=== PATIENT | male | born 1980 | race Caucasian/White ===

== ENCOUNTER 2018-02-21 20:57 | Emergency (ER) | payer BC, OTHER ==
[2018-02-21] MEDS ORDERED: PROVENTIL 2.5 MG/3 ML NEB IH ONE ×2 (21:09→21:15)
[2018-02-21] MEDS ORDERED: Sodium Chloride 0.9% 1000 ML 1,000 ML IV STA (21:09)
--- NOTE | 2018-02-21 21:09 | ERPHSYRPT ---
- History of Present Illness Time Seen by Provider: 02/21/18 21:05 Source: patient, family Exam Limitations: no limitations Physician History: The patient is a 37-year-old male with his complaining of a gradual onset of intermittent cough and shortness of breath for one month. He smokes cigarettes. His cough was better after a couple of weeks and got worse again this is happened 2 or 3 times. For the last 2 or 3 days has had a cough with sputum production. Since yesterday he has a pain in his chest especially with coughing in the upper central part of his chest. He says it feels like there is something that needs to be coughed out of his chest. His past medical history is unremarkable. He takes no prescription medicines. Timing/Duration: gradual onset (1 month ago), worse Cough Quality/Degree: moderate, productive cough Possible Cause: no prior episodes Modifying Factors: Improves With: coughing Associated Symptoms: chest pain/soreness, cough, shortness of breath Allergies/Adverse Reactions: No Known Drug Allergies Allergy (Verified 02/21/18 21:09) - Review of Systems Constitutional: No Fever, No Chills Eyes: No Symptoms Ears, Nose, & Throat: No Symptoms Respiratory: Cough, Dyspnea Cardiac: Chest Pain Abdominal/Gastrointestinal: No Abdominal Pain, No Nausea, No Vomiting, No Diarrhea Genitourinary Symptoms: No Dysuria Musculoskeletal: No Back Pain, No Neck Pain Skin: No Rash Neurological: No Dizziness, No Focal Weakness, No Sensory Changes Psychological: No Symptoms Endocrine: No Symptoms Hematologic/Lymphatic: No Symptoms Immunological/Allergic: No Symptoms All Other Systems: Reviewed and Negative - Past Medical History Neurological History: No Pertinent History Cardiac History: No Pertinent History Respiratory History: No Pertinent History Endocrine Medical History: No Pertinent History Musculoskeletal History: No Pertinent History - Nursing Vital Signs Nursing Vital Signs: Initial Vital Signs Temperature 98.5 F 02/21/18 21:00 Pulse Rate 140 H 02/21/18 21:00 Respiratory Rate 30 H 02/21/18 21:00 Blood Pressure 136/82 02/21/18 21:00 O2 Sat by Pulse Oximetry 100 02/21/18 21:00 Pain Scale Pain Intensity 10 - Physical Exam General Appearance: moderate distress, anxiety Eye Exam: PERRL/EOMI, eyes nml inspection Ears, Nose, Throat Exam: TMs normal, pharynx normal, moist mucous membranes, pharyngeal erythema, other (red and swollen uvula) Neck Exam: normal inspection, non-tender, supple, full range of motion Respiratory Exam: rhonchi (mild), No chest tenderness Cardiovascular Exam: regular rate/rhythm, normal heart sounds Gastrointestinal/Abdomen Exam: soft, No tenderness Rectal Exam: not done Back Exam: normal inspection, No CVA tenderness, No vertebral tenderness Extremity Exam: normal inspection, normal range of motion Neurologic Exam: alert, oriented x 3, cooperative, normal mood/affect, sensation nml, No motor deficits Skin Exam: normal color, warm, dry, No rash Lymphatic Exam: No adenopathy SpO2 Interpretation: normal Oxygen Delivery: Room Air - Course EKG Interpreted by Me: RATE, Sinus Tach, NORMAL AXIS, NORMAL INTERVALS, NORMAL QRS, NORMAL ST-T - Radiology Exams Chest X-ray Interpretation: Interpreted by me, Negative, No Pneumonia, No Infiltrates , Other (hyperventilated 2V chest.) Ordered Tests: Active Orders 24 hr Category Date Time Status Investigator Operator STAT Care 02/21/18 21:10 Active EKG-ER Only STAT Care 02/21/18 21:09 Active IV Insertion STAT Care 02/21/18 21:09 Active Oxygen-ED Only NASAL CANNULA 2 lpm Care 02/21/18 21:09 Active Pulse Oximetry (ED) STAT Care 02/21/18 21:09 Active CHEST 2 VIEWS (PA AND LAT) Stat Exams 02/21/18 21:09 Taken CBC W DIFF Stat Lab 02/21/18 21:35 Completed CMP Stat Lab 02/21/18 21:35 Completed D-DIMER QUANTITATION Stat Lab 02/21/18 21:35 Completed Lactic Acid Stat Lab 02/21/18 21:15 Completed NT PRO BNP Stat Lab 02/21/18 21:35 Completed TROPONIN Q3H Lab 02/21/18 21:35 Completed TROPONIN Q3H Lab 02/22/18 00:15 Ordered TROPONIN Q3H Lab 02/22/18 03:15 Ordered TROPONIN Q3H Lab 02/22/18 06:15 Ordered TROPONIN Q3H Lab 02/22/18 09:15 Ordered Respiratory Nebulizer STAT RT 02/21/18 21:10 Completed Respiratory Therapy Assessment DAILY RT 02/21/18 21:45 Active Medication Summary Discontinued Medications Generic Name Dose Route Start Last Admin Trade Name Freq PRN Reason Stop Dose Admin Albuterol Sulfate 2.5 mg 02/21/18 21:09 02/21/18 21:18 Proventil 2.5 Mg/3 Ml Neb IH 02/21/18 21:10 2.5 mg STAT ONE Administration Albuterol Sulfate Confirm 02/21/18 21:15 Proventil 2.5 Mg/3 Ml Neb Administered 02/21/18 21:16 Dose 2.5 mg IH .STK-MED ONE Sodium Chloride 1,000 mls @ 999 mls/hr 02/21/18 21:09 02/21/18 21:32 Sodium Chloride 0.9% 1000 Ml IV 02/21/18 22:09 999 mls/hr .Q1H1M STA Administration Sodium Chloride Confirm 02/21/18 21:30 Sodium Chloride 0.9% 1000 Ml Administered 02/21/18 21:31 Dose 1,000 mls @ ud .ROUTE .STK-MED ONE Lab/Rad Data: Laboratory Result Diagrams 02/21/18 21:35 02/21/18 21:35 Laboratory Results 02/21/18 02/21/18 02/21/18 Range/Units 21:35 21:35 21:35 WBC (4.0-10.5) K/mm3 RBC (4.1-5.6) M/mm3 Hgb (12.5-18.0) gm/dl Hct (42-50) % MCV (78-100) fl MCH (26-32) pg MCHC (32-36) g/dl RDW (11.5-14.0) % Plt Count (150-450) K/mm3 MPV (6-9.5) fl Gran % (36.0-66.0) % Eos # (Auto) (0-0.5) Absolute Lymphs (auto) (1.0-4.6) Absolute Monos (auto) (0.0-1.3) Lymphocytes % (24.0-44.0) % Monocytes % (0.0-12.0) % Eosinophils % (0.00-5.0) % Basophils % (0.0-0.4) % Absolute Granulocytes (1.4-6.9) Basophils # (0-0.4) D-Dimer < 215 L (215-500) ng/mL Sodium (137-145) mmol/L Potassium (3.5-5.1) mmol/L Chloride (98-107) mmol/L Carbon Dioxide (22-30) mmol/L Anion Gap (5-15) MEQ/L BUN (9-20) mg/dL Creatinine (0.66-1.25) mg/dL Estimated GFR ML/MIN Glucose (74-106) mg/dL Lactic Acid (0.4-2.0) Calcium (8.4-10.2) mg/dL Total Bilirubin (0.2-1.3) mg/dL AST (17-59) U/L ALT (0-50) U/L Alkaline Phosphatase (38-126) U/L Troponin I < 0.012 (0.000-0.034) ng/mL NT-Pro-B Natriuret Pep (0-450) pg/mL Serum Total Protein (6.3-8.2) g/dL Albumin (3.5-5.0) g/dL Influenza Type A Ag NEGATIVE (NEGATIVE) Influenza Type B Ag NEGATIVE (NEGATIVE) RSV (PCR) NEGATIVE (Negative) 02/21/18 02/21/18 02/21/18 Range/Units 21:35 21:35 21:15 WBC 7.9 (4.0-10.5) K/mm3 RBC 4.77 (4.1-5.6) M/mm3 Hgb 15.8 (12.5-18.0) gm/dl Hct 43.1 (42-50) % MCV 90.4 (78-100) fl MCH 33.1 H (26-32) pg MCHC 36.7 H (32-36) g/dl RDW 13.8 (11.5-14.0) % Plt Count 261 (150-450) K/mm3 MPV 9.1 (6-9.5) fl Gran % 61.8 (36.0-66.0) % Eos # (Auto) 0.04 (0-0.5) Absolute Lymphs (auto) 2.29 (1.0-4.6) Absolute Monos (auto) 0.69 (0.0-1.3) Lymphocytes % 28.9 (24.0-44.0) % Monocytes % 8.7 (0.0-12.0) % Eosinophils % 0.5 (0.00-5.0) % Basophils % 0.1 (0.0-0.4) % Absolute Granulocytes 4.90 (1.4-6.9) Basophils # 0.01 (0-0.4) D-Dimer (215-500) ng/mL Sodium 142 (137-145) mmol/L Potassium 3.5 (3.5-5.1) mmol/L Chloride 102 (98-107) mmol/L Carbon Dioxide 26 (22-30) mmol/L Anion Gap 17.4 H (5-15) MEQ/L BUN 15 (9-20) mg/dL Creatinine 0.82 (0.66-1.25) mg/dL Estimated GFR > 60.0 ML/MIN Glucose 99 (74-106) mg/dL Lactic Acid 1.7 (0.4-2.0) Calcium 9.7 (8.4-10.2) mg/dL Total Bilirubin 1.20 (0.2-1.3) mg/dL AST 24 (17-59) U/L ALT 22 (0-50) U/L Alkaline Phosphatase 71 (38-126) U/L Troponin I (0.000-0.034) ng/mL NT-Pro-B Natriuret Pep 35.2 (0-450) pg/mL Serum Total Protein 8.1 (6.3-8.2) g/dL Albumin 5.0 (3.5-5.0) g/dL Influenza Type A Ag (NEGATIVE) Influenza Type B Ag (NEGATIVE) RSV (PCR) (Negative) - Progress Progress: improved Air Movement: good Blood Culture(s) Obtained: No Antibiotics given: Yes Counseled pt/family regarding: lab results, diagnosis, need for follow-up, rad results, smoking cessation - Departure Time of Disposition: 22:20 Departure Disposition: Home Clinical Impression: Bronchitis Condition: Stable Critical Care Time: No Referrals: DOCTOR,NO FAMILY [NON-STAFF PHY W/O PRIVILEGES] - Additional Instructions: You have bronchitis. You were given an albuterol nebulizer breathing treatment in the ER. You were also given Rocephin 1 g by IV in the ER. Take azithromycin 500 mg on day 1 then 250 mg each day for days 2 through 5. Follow- up with your primary care doctor next week. Prescriptions: Azithromycin 250 mg [Zithromax 250 MG TABLET] 250 mg PO ZPACK #6 tablet
[2018-02-21] MEDS ORDERED: Sodium Chloride 0.9% 1000 ML 1,000 ML ONE (21:30)
[2018-02-21 21:41] LABS: BASOPHIL % 0.1 % (0.0-0.4); Basophil (Absolute #) 0.01 (0-0.4); Eosinophil % 0.5 % (0.00-5.0); Eosinophil (Absolute #) 0.04 (0-0.5); Granulocytes % 61.8 % (36.0-66.0); Hematocrit 43.1 % (42-50); Hemoglobin 15.8 gm/dl (12.5-18.0); Lymphocyte (Absolute #) 2.29 (1.0-4.6); Lymphocytes % 28.9 % (24.0-44.0); Mean Cell Volume 90.4 fl (78-100); Mean Corpuscular Hemoglobin 33.1 pg (26-32); Mean Corpuscular Hgb Concent. 36.7 g/dl (32-36); Mean Platelet Volume 9.1 fl (6-9.5); Monocyte (Absolute #) 0.69 (0.0-1.3); Monocytes % 8.7 % (0.0-12.0); Platelet Count 261 K/mm3 (150-450); Red Blood Count 4.77 M/mm3 (4.1-5.6); Red Cell Distribution Width 13.8 % (11.5-14.0); White Blood Count 7.9 K/mm3 (4.0-10.5)
[2018-02-21 21:49] VITALS: O2SAT 98
[2018-02-21 22:04] LABS: ALKALINE PHOSPHATASE 71 U/L (38-126); ANION GAP 17.4 MEQ/L (5-15); BLOOD UREA NITROGEN 15 mg/dL (9-20); CHLORIDE 102 mmol/L (98-107); Calcium 9.7 mg/dL (8.4-10.2); Carbon Dioxide 26 mmol/L (22-30); Creatinine 1 0.82 mg/dL (0.66-1.25); Glucose 99 mg/dL (74-106); NT PRO BNP 35.2 pg/mL (0-450); Potassium 3.5 mmol/L (3.5-5.1); SGOT/AST 24 U/L (17-59); SGPT/ALT 22 U/L (0-50); SODIUM 142 mmol/L (137-145); Total Protein 8.1 g/dL (6.3-8.2)
[2018-02-21 22:13] LABS: INFLUENZA A NEGATIVE (NEGATIVE); INFLUENZA B NEGATIVE (NEGATIVE); RESPIRATORY SYNCTIAL VIRUS NEGATIVE (Negative)
[2018-02-21] MEDS ORDERED: ROCEPHIN 1 Gm-D5w 50 ml Bag** 1 G/50 ML IVPB IV STA (22:20)
[2018-02-21] MEDS ORDERED: ROCEPHIN 1 Gm-D5w 50 ml Bag** 1 G/50 ML IVPB IV ONE (22:33)
[2018-02-21 23:17] VITALS: BP 116/75; PULSE 90
--- NOTE | 2018-02-22 11:07 | XRAY ---
Exam: Two-view chest from 02/21/2018. Comparison: None. Indication: 37-year-old male with cough, shortness breath, chest pain, history of cigarette smoking for 19 years. Findings: 2 Upright PA films and a lateral chest film were obtained. There is mild hyperinflation of the lungs with a prominent retrosternal airspace. Correlate clinically regarding COPD. The heart size and contour are normal. The owen and mediastinal structures appear unremarkable. EKG leads are noted. No air space infiltrates, vascular congestion, pneumothorax, or pleural fluid is seen. Minimal focal pleural tenting is seen at the lateral aspect of the right hemidiaphragm. This is nonspecific, but may be due to minimal scarring. No acute osseous process is seen. Impression: 1. Hyperinflated chest revealing no infiltrates, heart failure, pneumothorax, or other acute cardiopulmonary disease. Correlate clinically regarding an element of COPD.
== END 2018-02-21 23:17 | disposition home or self-care (01) ==
LOC: ED 20:57
DX: J40 Bronchitis, not specified as acute or chronic (principal)
CPT/HCPCS: 36000; 36415; 71046; 80053; 83605; 83880; 84484; 85025; 85379; 87631; 93005; 93041; 94640; 96360; 96365; 99284; J7609; J0696; A9270-GY

== ENCOUNTER 2022-09-04 12:57 | Emergency (ER) | payer SELFPAY ==
[2022-09-04] MEDS ORDERED: Hydromorphone 1 mg/ml Injection IV ONE (13:09)
[2022-09-04] MEDS ORDERED: Zofran 4 MG/2 ML VIAL IV ONE (13:09)
--- NOTE | 2022-09-04 13:09 | ERPHSYRPT ---
- History of Present Illness Time Seen by Provider: 09/04/22 13:08 Source: patient, family Exam Limitations: no limitations Patient Subjective Stated Complaint: Fell and cut left lower leg. Physician History: Fell outside, cut lower left leg, painful, limited movement, no other injury. Method of Injury: direct blow, fell Occurred: just prior to arrival Quality: constant Severity of Pain-Max: moderate Severity of Pain-Current: moderate Lower Extremities Pain: leg: left (contused laceration) Modifying Factors: Improves With: rest. Worsens With: movement Associated Symptoms: none Allergies/Adverse Reactions: No Known Drug Allergies Allergy (Verified 09/04/22 13:02) Home Medications: No Reportable Medications [No Reported Medications] 09/04/22 [History] Hx Tetanus, Diphtheria Vaccination/Date Given: Yes Hx Influenza Vaccination/Date Given: No Hx Pneumococcal Vaccination/Date Given: No - Review of Systems Constitutional: No Symptoms Eyes: No Symptoms Ears, Nose, & Throat: No Symptoms Respiratory: No Symptoms Cardiac: No Symptoms Abdominal/Gastrointestinal: No Symptoms Genitourinary Symptoms: No Symptoms Musculoskeletal: No Symptoms Skin: No Symptoms Neurological: No Symptoms Psychological: No Symptoms Endocrine: No Symptoms Hematologic/Lymphatic: No Symptoms All Other Systems: Reviewed and Negative - Past Medical History Pertinent Past Medical History: No Neurological History: No Pertinent History Cardiac History: No Pertinent History Respiratory History: No Pertinent History Endocrine Medical History: No Pertinent History Musculoskeletal History: No Pertinent History GI Medical History: No Pertinent History History: No Pertinent History Psycho-Social History: No Pertinent History Male Reproductive Disorders: No Pertinent History - Past Surgical History Past Surgical History: No Neuro Surgical History: No Pertinent History Cardiac: No Pertinent History Respiratory: No Pertinent History Gastrointestinal: No Pertinent History Genitourinary: No Pertinent History Musculoskeletal: No Pertinent History Male Surgical History: No Pertinent History - Social History Smoking Status: Current every day smoker How long have you smoked: 3 Exposure to second hand smoke: No Drug Use: none Patient Lives Alone: No Significant Family History: no pertinent family hx - Nursing Vital Signs Nursing Vital Signs: Initial Vital Signs Temperature 98.0 F 09/04/22 13:04 Pulse Rate 93 H 09/04/22 13:04 Respiratory Rate 20 09/04/22 13:04 Blood Pressure 122/79 09/04/22 13:04 O2 Sat by Pulse Oximetry 98 09/04/22 13:04 Pain Scale Pain Intensity 8 - Physical Exam General Appearance: mild distress Eyes, Ears, Nose, Throat Exam: normal ENT inspection Neck Exam: normal inspection, non-tender Cardiovascular/Respiratory Exam: chest non-tender, normal breath sounds Gastrointestinal/Abdominal Exam: non-tender, soft Back Exam: normal inspection, normal range of motion Legs Exam: left leg: bone tenderness, limited range of motion, pain, soft tissue tenderness, swelling Neuro/Tendon Exam: normal sensation, normal motor functions, normal tendon functions Mental Status Exam: alert, oriented x 3, cooperative, other (mild intoxication) Skin Exam: normal color, warm, dry - Course Nursing assessment & vital signs reviewed: Yes - Radiology Exams Lower Leg X-ray Interpretation: Interpreted by me, Negative, Other (STS) Ordered Tests: Active Orders 24 hr Category Date Time Status IV Insertion STAT Care 09/04/22 13:10 Active LOWER LEG Stat Exams 09/04/22 13:17 Taken Medication Summary Discontinued Medications Generic Name Dose Route Start Last Admin Trade Name Freq PRN Reason Stop Dose Admin Diphtheria/Tetanus/Acell Pertussis 0.5 ml 09/04/22 13:15 09/04/22 13:32 Tdap --Diph,Pertuss(Acell),Tet Vac/Pf 0.5 Ml Vial IM 09/04/22 13:16 0.5 ml .ONCE ONE Administration Diphtheria/Tetanus/Acell Pertussis Confirm 09/04/22 13:31 Tdap --Diph,Pertuss(Acell),Tet Vac/Pf 0.5 Ml Vial Administered 09/04/22 13 :32 Dose 0.5 ml IM .STK-MED ONE Hydromorphone HCl 1 mg 09/04/22 13:09 09/04/22 13:14 Hydromorphone 1 Mg/1ml Inj 1 Mg/Ml Syringe IV 09/04/22 13:10 1 mg STAT ONE Administration Hydromorphone HCl Confirm 09/04/22 13:11 Hydromorphone 1 Mg/1ml Inj 1 Mg/Ml Syringe Administered 09/04/22 13:12 Dose 1 mg .ROUTE .STK-MED ONE Cefazolin Sodium/Dextrose 1 gm in 50 mls @ 100 mls/hr 09/04/22 13:11 09/04/22 13:45 Kefzol 1 Gm/50 Ml Premix IV 09/04/22 13:40 Infused STAT STA Infusion Cefazolin Sodium/Dextrose Confirm 09/04/22 13:11 Kefzol 1 Gm/50 Ml Premix Administered 09/04/22 13:12 Dose 1 gm in 50 mls @ ud IV .STK-MED ONE Lidocaine HCl Confirm 09/04/22 13:12 Lidocaine Hcl 1% 20 Ml Mdv 20 Ml Ml Administered 09/04/22 13:13 Dose 1 ml .ROUTE .STK-MED ONE Ondansetron HCl 4 mg 09/04/22 13:09 09/04/22 13:14 Ondansetron Hcl 4 Mg/2 Ml Vial IV 09/04/22 13:10 4 mg STAT ONE Administration Ondansetron HCl Confirm 09/04/22 13:11 Ondansetron Hcl 4 Mg/2 Ml Vial Administered 09/04/22 13:12 Dose 4 mg .ROUTE .STK-MED ONE - Progress Progress: improved, re-examined Progress Note: 09/04/22 13:54 The wound was anesthetized with lidocaine, well irrigated, is a complex wound with clinical suspicion for muscle injury, possible tendon injury, measures about 11 cm across and 3 cm in width, depth about 1-2 cm, extends to bone. NVI grossly, possible limitations in exam due to EtOH use. Given one gm Ancef IV and boostrix shot. Dilaudid one mg with zofran for pain control. Wound dressed. Transfer to [facility] due to complex nature of wound. 09/04/22 13:59 Discussed with : Other (ED Dr. Nance at [facility], accepts in transfer via EMS, stable) Counseled pt/family regarding: diagnosis, rad results (Need for transfer.) - Departure Departure Disposition: Transfer Clinical Impression: Lower leg laceration with complication Qualifiers: Encounter type: initial encounter Laterality: left Qualified Code(s): S81.812A - Laceration without foreign body, left lower leg, initial encounter Condition: Stable Critical Care Time: No
[2022-09-04] MEDS ORDERED: KEFZOL 1 GM/50 ML PREMIX** 1 GM/50 ML IVPB IV STA (13:11)
[2022-09-04] MEDS ORDERED: Hydromorphone 1 mg/ml Injection ONE (13:11)
[2022-09-04] MEDS ORDERED: KEFZOL 1 GM/50 ML PREMIX** 1 GM/50 ML IVPB IV ONE (13:11)
[2022-09-04] MEDS ORDERED: Zofran 4 MG/2 ML VIAL ONE (13:11)
[2022-09-04] MEDS ORDERED: XYLOCAINE 1% HCL 20 ML MDV ONE (13:12)
[2022-09-04] MEDS ORDERED: Adacel Vial IM ONE ×2 (13:15→13:31)
[2022-09-04 14:04] VITALS: BP 119/69; PULSE 92; O2SAT 97
--- NOTE | 2022-09-04 19:25 | XRAY ---
Indication: Trauma/laceration. Comparison: None 2 view left lower leg demonstrates proximal anterior soft tissue swelling/laceration. No other bony, articular, or soft tissue abnormalities.
== END 2022-09-04 14:19 | disposition short-term general hospital (02) ==
LOC: ED 12:57
DX: S81.812A Laceration without foreign body, left lower leg, initial encounter (principal); W19.XXXA Unspecified fall, initial encounter; Z72.0 Tobacco use
CPT/HCPCS: 36000; 73590; 90471; 90715; 96365; 96374; 96375; 99284; J0690; J1170; J2405